=== PATIENT | female | born 1960 | race American Indian/Alaskan Native ===

== ENCOUNTER 2017-05-25 15:19 | Inpatient (IN) | payer OTHER ==
[~2017-05-25] VITALS: Ht 157.5 cm; Wt 115.7 kg
[~2017-05-25 15:19] MED LIST: ALPR0.2583 PO; ESCI10TA PO; IBUP-1480 PO; NITSL SL; SITA100T7 PO
[2017-05-25 15:20] VITALS: BP_SYST 149
[2017-05-25] MEDS ORDERED: MORPHINE 4 MG/ML INJ. SYRINGE IVP ONE ×2 (15:30→17:45)
[2017-05-25] MEDS ORDERED: ASPIRIN 81 MG TAB.CHEW PO ONE (15:30)
[2017-05-25] MEDS ORDERED: ONDANSETRON HCL 4 MG/2 ML VIAL IVP ONE (15:30)
[2017-05-25 16:06] LABS: BASOPHILS # (AUTO) 0.3 K/uL (0.0-0.2); EOSINOPHILS # (AUTO) 0.1 K/uL (0.0-0.4); EOSINOPHILS % (AUTO) 0.7 % (0.0-4.0); HEMATOCRIT 39.8 % (36-48); LYMPHOCYTES # (AUTO) 0.6 K/uL (1.0-5.5); LYMPHOCYTES % (AUTO) 3.7 % (20.5-51.5); MEAN CORPUSCULAR HEMOGLOBIN 29 pg (27-31); MEAN CORPUSCULAR HGB CONC 33 % (32-36); MEAN CORPUSCULAR VOLUME 88 fL (79.0-98.0); MONOCYTES # (AUTO) 0.1 K/uL (0.0-1.0); MONOCYTES % (AUTO) 0.7 % (1.7-9.3); NEUTROPHILS # (AUTO) 14.6 K/uL (1.8-7.7); NEUTROPHILS % (AUTO) 92.9 % (40.0-70.0); PLATELET COUNT (AUTO) 278 K/uL (130-430); RED BLOOD CELL COUNT(AUTO) 4.51 MIL/uL (4.2-6.2); RED CELL DISTRIBUTION WIDTH 14.3 % (9.0-15.0); WHITE BLOOD COUNT (AUTO) 15.7 K/uL (4.8-10.8)
[2017-05-25] MEDS: NACL 0.9% 1,000 ML IV SCH ×2 (16:25→18:32)
[2017-05-25 16:28] LABS: PROTHROMBIN TIME 11.1 SECS (9.5-12.5)
[2017-05-25] MEDS ORDERED: PIPERACILLIN/TAZO 3.38 GM in D5W 50 ML IV ONE (16:30)
[2017-05-25] MEDS ORDERED: VANCOMYCIN HCL 1,000 MG in D5W 250 ML IV ONE (16:30)
[2017-05-25 16:31] LABS: CALCIUM 8.5 mg/dL (8.4-11.0); CREATININE 0.64 mg/dL (0.55-1.30); POTASSIUM 3.6 mmol/L (3.5-5.1)
[2017-05-25 16:35] LABS: ALBUMIN 3.1 g/dL (3.4-4.8); TOTAL BILIRUBIN 4.4 mg/dL (0.0-1.0); TOTAL PROTEIN, SERUM 7.7 g/dL (6.4-8.3)
[2017-05-25] MEDS ORDERED: PIPERACILLIN/TAZOBACTAM 3.375 GM/VIAL (ZOSYN) IV ONE (16:45)
[2017-05-25] MEDS ORDERED: VANCOMYCIN HCL 1000 MG/VIAL IV ONE (16:46)
[2017-05-25] MEDS ORDERED: MORPHINE 4 MG/ML INJ. SYRINGE ONE (18:00)
[2017-05-25] MEDS ORDERED: LORazepam 2 MG/ML VIAL IVP PRN (18:30)
[2017-05-25] MEDS ORDERED: ACETAMINOPHEN 325 MG TABLET PO PRN (18:30)
[2017-05-25] MEDS ORDERED: IND25 PO (18:34)
[2017-05-25] MEDS ORDERED: ASPI-1063 PO (18:34)
[2017-05-25] MEDS ORDERED: TYC3 PO (18:34)
[2017-05-25] MEDS ORDERED: PRO40 PO (18:34)
[2017-05-25] MEDS ORDERED: INSULIN REGULAR, HUMAN 100 UNITS/ML, 10 ML VIAL (novoLIN R) SUBCUT PRN (18:45)
[2017-05-25 20:02] VITALS: BP_SYST 113
[2017-05-25 20:19] VITALS: BP_SYST 113
[2017-05-25 21:00] VITALS: BP_SYST 113
[2017-05-25 21:09] VITALS: BP_SYST 113
[2017-05-26 01:42] VITALS: BP_SYST 128
[2017-05-26 04:00] VITALS: BP_SYST 96
[2017-05-26] MEDS: PIPERACILLIN/TAZO 3.375/DEX-IS 50 ML IV SCH ×5 (06:00→23:57)
[2017-05-26 06:35] LABS: HEMOGLOBIN 12.2 g/dL (12.0-16.0); MEAN CORPUSCULAR HEMOGLOBIN 29 pg (27-31); MEAN CORPUSCULAR HGB CONC 33 % (32-36); MEAN CORPUSCULAR VOLUME 89 fL (79.0-98.0); PLATELET COUNT (AUTO) 262 K/uL (130-430); RED BLOOD CELL COUNT(AUTO) 4.15 MIL/uL (4.2-6.2); RED CELL DISTRIBUTION WIDTH 14.3 % (9.0-15.0); WHITE BLOOD COUNT (AUTO) 19.2 K/uL (4.8-10.8)
[2017-05-26 06:48] LABS: ALBUMIN 2.8 g/dL (3.4-4.8); CREATININE 0.67 mg/dL (0.55-1.30); POTASSIUM 3.5 mmol/L (3.5-5.1); TOTAL BILIRUBIN 4.5 mg/dL (0.0-1.0); TOTAL PROTEIN, SERUM 7.1 g/dL (6.4-8.3)
[2017-05-26 08:21] LABS: ATYPICAL LYMPHOCYTES % 0 % (0-0); BAND % (MANUAL) 17 % (0-6); EOSINOPHILS % (MANUAL) 0 % (0-7); LYMPHOCYTES % (MANUAL) 6 % (20-46); MONOCYTES % (MANUAL) 3 % (0-11)
[2017-05-26 08:22] LABS: BASOPHILS % (MANUAL) 0 % (0-2)
[2017-05-26 10:46] VITALS: BP_SYST 121
[2017-05-26 12:05] VITALS: BP_SYST 106
[2017-05-26] MEDS: D5NS 1,000 ML IV SCH ×2 (12:26→23:57)
[2017-05-26] MEDS: HYDROmorphone 1 MG INJ. 1 MG/ML AMPUL IVP PRN ×2 (15:09→20:00)
[2017-05-26 16:38] VITALS: BP_SYST 110
[2017-05-26] MEDS: ONDANSETRON HCL 4 MG/2 ML VIAL IVP PRN (16:58)
[2017-05-26] MEDS ORDERED: DEXTROSE 50% JECT 50 ML DISP.SYRIN IVP PRN (18:45)
[2017-05-26 20:01] VITALS: BP_SYST 120
[2017-05-27] MEDS: INSULIN REGULAR, HUMAN 100 UNITS/ML, 10 ML VIAL (novoLIN R) SUBCUT PRN ×2 (00:03→23:21)
[2017-05-27 00:08] VITALS: BP_SYST 94
[2017-05-27 04:22] VITALS: BP_SYST 96
[2017-05-27] MEDS: PIPERACILLIN/TAZO 3.375/DEX-IS 50 ML IV SCH ×4 (05:47→23:04)
[2017-05-27 06:57] LABS: ALBUMIN 2.5 g/dL (3.4-4.8); BILIRUBIN,DIRECT 2.6 mg/dL (0.0-0.3); TOTAL BILIRUBIN 2.8 mg/dL (0.0-1.0); TOTAL PROTEIN, SERUM 6.1 g/dL (6.4-8.3)
[2017-05-27 08:15] VITALS: BP_SYST 107
[2017-05-27] MEDS: PANTOPRAZOLE SODIUM 40 MG/VIAL (PROTONIX) IVP SCH (12:12)
[2017-05-27 13:11] LABS: HEPATITIS A AB, IgM Negative (Negative); HEPATITIS B CORE AB, IgM Negative (Negative); HEPATITIS B SURFACE AG Negative (Negative)
[2017-05-27 17:18] VITALS: BP_SYST 122
[2017-05-27] MEDS: HYDROcodone/ACETAMIN 5-325 MG TAB (NORCO/ VICODIN) PO PRN (17:20)
[2017-05-27 20:00] VITALS: BP_SYST 133
[2017-05-27] MEDS: HYDROmorphone 1 MG INJ. 1 MG/ML AMPUL IVP PRN (21:30)
[2017-05-27] MEDS: ONDANSETRON HCL 4 MG/2 ML VIAL IVP PRN (23:05)
[2017-05-27] MEDS: D5NS 1,000 ML IV SCH (23:23)
[2017-05-28] VITALS (8 sets, daily range): BP systolic 112–130
[2017-05-28 03:54] LABS: BILIRUBIN,URINE 1+ (NEGATIVE); BLOOD, URINE NEGATIVE (NEGATIVE); CLARITY/URINE CLEAR (CLEAR); COLOR,URINE YELLOW (YELLOW); GLUCOSE,URINE NEGATIVE (NEGATIVE); KETONES,URINE NEGATIVE (NEGATIVE); LEUKOCYTE ESTERASE ,URINE NEGATIVE (NEGATIVE); NITRITE, URINE NEGATIVE (NEGATIVE); PROTEIN URINE NEGATIVE (NEGATIVE)
[2017-05-28] MEDS: D5NS 1,000 ML IV SCH ×3 (04:25→21:01)
[2017-05-28] MEDS: PIPERACILLIN/TAZO 3.375/DEX-IS 50 ML IV SCH ×4 (05:25→23:51)
[2017-05-28] MEDS: PANTOPRAZOLE SODIUM 40 MG/VIAL (PROTONIX) IVP SCH (09:37)
[2017-05-28] MEDS: HYDROmorphone 1 MG INJ. 1 MG/ML AMPUL IVP PRN ×2 (09:41→21:01)
[2017-05-28] MEDS: ONDANSETRON HCL 4 MG/2 ML VIAL IVP PRN (12:17)
[2017-05-28] MEDS ORDERED: ROCURONIUM BROMIDE 10 MG/ML (ZEMURON) IV ONE (12:31)
[2017-05-28] MEDS ORDERED: MIDAZOLAM HCL 5 MG/5 ML VIAL IVP ONE (12:31)
[2017-05-28] MEDS ORDERED: CEFAZOLIN 1 GM IVPB PREMIX 50 ML IV ONE (12:31)
[2017-05-28] MEDS ORDERED: PROPOFOL 200MG/ 20ML VIAL (DIPRIVAN) IV ONE (12:31)
[2017-05-28] MEDS ORDERED: fentaNYL CITRATE/PF 100 MCG/2 ML AMP IVP ONE (12:31)
[2017-05-28] MEDS ORDERED: KETOROLAC TROMETHAMINE 30 MG VIAL IVP ONE (12:31)
[2017-05-28] MEDS ORDERED: LR 1,000 ML IV.SOLN IV ONE (12:31)
[2017-05-28] MEDS ORDERED: SEVOFLURANE 15 MIN GAS INH ONE (12:31)
[2017-05-28] MEDS ORDERED: GLUCAGON,HUMAN RECOMBINANT 1 MG VIAL IV ONE (12:31)
[2017-05-28] MEDS ORDERED: HYDROmorphone 2 MG/ML VIAL IVP ONE (12:31)
[2017-05-28] MEDS ORDERED: SUCCINYLCHOLINE CHLORIDE 20 MG/ML(QUELICIN) IVP ONE (12:31)
[2017-05-28] MEDS ORDERED: DEXAMETHASONE SOD PHOSPHATE 4 MG/ML VIAL IVP ONE (12:31)
[2017-05-28] MEDS ORDERED: IOHEXOL 50 ML IV ONE (13:29)
[2017-05-28] MEDS ORDERED: LR 1,000 ML IV ONE (14:23)
[2017-05-28] MEDS ORDERED: NALOXONE HCL 0.4 MG/ML AMP (NARCAN) IVP PRN (14:30)
[2017-05-28] MEDS ORDERED: DIPHENHYDRAMINE INJ 50 MG/ML VIAL IVP PRN (14:30)
[2017-05-28] MEDS ORDERED: ONDANSETRON HCL 4 MG/2 ML VIAL IVP PRN ×2 (14:30)
[2017-05-28] MEDS ORDERED: NALBUPHINE HCL 10 MG/ML AMP IVP PRN (14:30)
[2017-05-28] MEDS ORDERED: ePHEDrine sulfate 50 MG/ML VIAL IVP PRN (14:30)
[2017-05-28] MEDS: fentaNYL CITRATE/PF 100 MCG/2 ML AMP ONE ×2 (15:20→15:26)
[2017-05-28] MEDS: fentaNYL CITRATE/PF 100 MCG/2 ML AMP IVP PRN ×2 (15:35→15:40)
[2017-05-28] MEDS ORDERED: fentaNYL CITRATE/PF 100 MCG/2 ML AMP ONE (15:40)
[2017-05-28] MEDS: INSULIN REGULAR, HUMAN 100 UNITS/ML, 10 ML VIAL (novoLIN R) SUBCUT PRN ×2 (17:41→23:35)
[2017-05-29] VITALS (7 sets, daily range): BP systolic 103–132
[2017-05-29] MEDS: HYDROmorphone 1 MG INJ. 1 MG/ML AMPUL IVP PRN ×4 (01:41→16:59)
[2017-05-29] MEDS: HYDROcodone/ACETAMIN 5-325 MG TAB (NORCO/ VICODIN) PO PRN ×2 (03:55→21:28)
[2017-05-29] MEDS: PIPERACILLIN/TAZO 3.375/DEX-IS 50 ML IV SCH ×4 (05:34→23:38)
[2017-05-29] MEDS: INSULIN REGULAR, HUMAN 100 UNITS/ML, 10 ML VIAL (novoLIN R) SUBCUT PRN ×2 (05:47→23:36)
[2017-05-29] MEDS: D5NS 1,000 ML IV SCH ×3 (05:50→23:39)
[2017-05-29 06:42] LABS: PROTHROMBIN TIME 10.8 SECS (9.5-12.5)
[2017-05-29 06:46] LABS: BASOPHILS % (AUTO) 0.1 % (0.0-2.0); HEMATOCRIT 33.6 % (36-48); HEMOGLOBIN 11.2 g/dL (12.0-16.0); LYMPHOCYTES # (AUTO) 1.4 K/uL (1.0-5.5); LYMPHOCYTES % (AUTO) 11.6 % (20.5-51.5); MEAN CORPUSCULAR HEMOGLOBIN 30 pg (27-31); MEAN CORPUSCULAR HGB CONC 33 % (32-36); MEAN CORPUSCULAR VOLUME 88 fL (79.0-98.0); MONOCYTES # (AUTO) 0.6 K/uL (0.0-1.0); MONOCYTES % (AUTO) 5.2 % (1.7-9.3); NEUTROPHILS # (AUTO) 10.2 K/uL (1.8-7.7); PLATELET COUNT (AUTO) 252 K/uL (130-430); WHITE BLOOD COUNT (AUTO) 12.2 K/uL (4.8-10.8)
[2017-05-29 06:51] LABS: ALBUMIN 2.4 g/dL (3.4-4.8); CALCIUM 8.3 mg/dL (8.4-11.0); CREATININE 0.57 mg/dL (0.55-1.30); POTASSIUM 3.3 mmol/L (3.5-5.1); TOTAL BILIRUBIN 1.1 mg/dL (0.0-1.0); TOTAL PROTEIN, SERUM 6.8 g/dL (6.4-8.3)
[2017-05-29] MEDS: ONDANSETRON HCL 4 MG/2 ML VIAL IVP PRN (08:45)
[2017-05-29] MEDS: PANTOPRAZOLE SODIUM 40 MG/VIAL (PROTONIX) IVP SCH (08:45)
[2017-05-29 11:44] LABS: NEUTROPHILS % (AUTO) 83.1 % (40.0-70.0)
[2017-05-29] MEDS ORDERED: POTASSIUM CHLORIDE 40 MEQ in NS 250 ML IV ONE (12:15)
[2017-05-30] MEDS: HYDROmorphone 1 MG INJ. 1 MG/ML AMPUL IVP PRN (03:04)
[2017-05-30] MEDS: PIPERACILLIN/TAZO 3.375/DEX-IS 50 ML IV SCH ×4 (05:50→23:42)
[2017-05-30] MEDS: HYDROcodone/ACETAMIN 5-325 MG TAB (NORCO/ VICODIN) PO PRN ×2 (07:48→20:57)
[2017-05-30 08:00] VITALS: BP_SYST 122
[2017-05-30] MEDS: PANTOPRAZOLE SODIUM 40 MG/VIAL (PROTONIX) IVP SCH (09:11)
[2017-05-30 12:40] VITALS: BP_SYST 139
[2017-05-30] MEDS ORDERED: NS IRRIG SOLN 1000 ML IR ONE (14:45)
[2017-05-30] MEDS ORDERED: DEXAMETHASONE SOD PHOSPHATE 4 MG/ML VIAL IVP ONE (14:45)
[2017-05-30] MEDS ORDERED: PROPOFOL 200MG/ 20ML VIAL (DIPRIVAN) IV ONE (14:45)
[2017-05-30] MEDS ORDERED: MIDAZOLAM HCL 5 MG/5 ML VIAL IVP ONE (14:45)
[2017-05-30] MEDS ORDERED: KETOROLAC TROMETHAMINE 30 MG VIAL IVP ONE (14:45)
[2017-05-30] MEDS ORDERED: WATER FOR IRRIGATION,STERILE 1,000 ML IRRIG.SOLN IR ONE (14:45)
[2017-05-30] MEDS ORDERED: SUCCINYLCHOLINE CHLORIDE 20 MG/ML(QUELICIN) IVP ONE (14:45)
[2017-05-30] MEDS ORDERED: ONDANSETRON HCL 4 MG/2 ML VIAL IVP ONE (14:45)
[2017-05-30] MEDS ORDERED: SEVOFLURANE 15 MIN GAS INH ONE (14:45)
[2017-05-30] MEDS ORDERED: IOPAMIDOL 50 ML VIAL IV ONE (14:45)
[2017-05-30] MEDS ORDERED: fentaNYL CITRATE 250 MCG/5 ML AMP IV ONE (14:45)
[2017-05-30] MEDS ORDERED: ROCURONIUM BROMIDE 10 MG/ML (ZEMURON) IV ONE (14:45)
[2017-05-30] MEDS ORDERED: LR 1,000 ML IV.SOLN IV ONE (14:45)
[2017-05-30] MEDS ORDERED: LR 1,000 ML IV SCH (14:58)
[2017-05-30] MEDS ORDERED: HYDROmorphone 2 MG/ML VIAL IVP PRN ×2 (15:00)
[2017-05-30] MEDS ORDERED: MEPERIDINE HCL/PF 25 MG/ML DISP.SYRIN IVP PRN (15:00)
[2017-05-30] MEDS ORDERED: HYDROmorphone 1 MG INJ. 1 MG/ML AMPUL IVP PRN (15:00)
[2017-05-30] MEDS ORDERED: IOHEXOL 50 ML IV ONE (15:36)
[2017-05-30] MEDS: D5NS 1,000 ML IV SCH (18:05)
[2017-05-30 20:00] VITALS: BP_SYST 125
[2017-05-30] MEDS: INSULIN REGULAR, HUMAN 100 UNITS/ML, 10 ML VIAL (novoLIN R) SUBCUT PRN (23:44)
[2017-05-31 00:20] VITALS: BP_SYST 120
[2017-05-31 03:36] VITALS: BP_SYST 112
[2017-05-31] MEDS: PIPERACILLIN/TAZO 3.375/DEX-IS 50 ML IV SCH ×2 (05:21→11:51)
[2017-05-31] MEDS: D5NS 1,000 ML IV SCH ×2 (05:22→10:56)
[2017-05-31 06:52] LABS: BASOPHILS # (AUTO) 0.1 K/uL (0.0-0.2); BASOPHILS % (AUTO) 1.1 % (0.0-2.0); EOSINOPHILS % (AUTO) 0.1 % (0.0-4.0); HEMATOCRIT 35.4 % (36-48); HEMOGLOBIN 11.9 g/dL (12.0-16.0); LYMPHOCYTES # (AUTO) 1.6 K/uL (1.0-5.5); LYMPHOCYTES % (AUTO) 14.6 % (20.5-51.5); MEAN CORPUSCULAR HEMOGLOBIN 30 pg (27-31); MEAN CORPUSCULAR HGB CONC 34 % (32-36); MEAN CORPUSCULAR VOLUME 88 fL (79.0-98.0); MONOCYTES # (AUTO) 0.4 K/uL (0.0-1.0); MONOCYTES % (AUTO) 3.6 % (1.7-9.3); NEUTROPHILS # (AUTO) 8.7 K/uL (1.8-7.7); NEUTROPHILS % (AUTO) 80.6 % (40.0-70.0); PLATELET COUNT (AUTO) 273 K/uL (130-430); RED CELL DISTRIBUTION WIDTH 13.9 % (9.0-15.0); WHITE BLOOD COUNT (AUTO) 10.8 K/uL (4.8-10.8)
[2017-05-31 07:31] LABS: ALBUMIN 2.6 g/dL (3.4-4.8); CALCIUM 8.5 mg/dL (8.4-11.0); CREATININE 0.63 mg/dL (0.55-1.30); POTASSIUM 3.5 mmol/L (3.5-5.1); TOTAL BILIRUBIN 1.1 mg/dL (0.0-1.0); TOTAL PROTEIN, SERUM 7.2 g/dL (6.4-8.3)
[2017-05-31] MEDS: PANTOPRAZOLE SODIUM 40 MG/VIAL (PROTONIX) IVP SCH (08:44)
[2017-05-31] MEDS: HYDROcodone/ACETAMIN 5-325 MG TAB (NORCO/ VICODIN) PO PRN ×2 (08:46→16:14)
[2017-05-31 08:55] VITALS: BP_SYST 128
[2017-05-31 12:34] VITALS: BP_SYST 139
[2017-05-31 16:42] VITALS: BP_SYST 124
[2017-05-31 17:48] VITALS: BP_SYST 124
== END 2017-05-31 18:10 | disposition home or self-care (01) | DRG 854 ==
LOC: SED 15:19 → SMU 18:30 → STU 19:32 → SMU 05-27 13:46
PROVIDERS: ADMIT Internal Medicine Hospice and Palliative Medicine; ATTEND Internal Medicine Hospice and Palliative Medicine
PROC: BF131ZZ Fluoroscopy of Gallbladder and Bile Ducts using Low Osmolar Contrast (ICD-10-PCS; 2017-05-28)
PROC: 0FT44ZZ Resection of Gallbladder, Percutaneous Endoscopic Approach (ICD-10-PCS; principal; 2017-05-28 12:00)
PROC: 0FC98ZZ Extirpation of Matter from Common Bile Duct, Via Natural or Artificial Opening Endoscopic (ICD-10-PCS; 2017-05-30)
PROC: BF131ZZ Fluoroscopy of Gallbladder and Bile Ducts using Low Osmolar Contrast (ICD-10-PCS; 2017-05-30)
DX: A41.9 Sepsis, unspecified organism (principal); K80.62 Calculus of gallbladder and bile duct with acute cholecystitis without obstruction; Z68.42 Body mass index [BMI] 45.0-49.9, adult; E66.01 Morbid (severe) obesity due to excess calories; K57.90 Diverticulosis of intestine, part unspecified, without perforation or abscess without bleeding; E11.9 Type 2 diabetes mellitus without complications; F41.9 Anxiety disorder, unspecified; M19.90 Unspecified osteoarthritis, unspecified site; Z83.79 Family history of other diseases of the digestive system
CPT/HCPCS: 36415; 71010; 74181; 74300; 76000; 76700-TC; 78226; 80053; 80061; 80074; 80076; 81003; 82962; 83605; 83690-TC; 83880; 84484; 84703; 85007; 85025; 85027; 85610-TC; 85730-TC; 87040-TC; 87081; 87086; 88304; 93005; 96365; 96366; 96367; 96375; 96376; 99285; A9537; C1727; C1769; C9113; J0330; J0690; J1100; J1170; J1610; J1815; J1885; J2060; J2250; J2270; J2405; J2543; J2704; J3010; J3370; J3480; J7030; J7042; J7050; J7060; J7120; Q9967